=== PATIENT | female | born 1985 | race Hispanic/Latino ===

== ENCOUNTER 2018-04-22 23:34 | Emergency (ER) | payer MEDICAID, OTHER ==
[2018-04-23] MEDS ORDERED: CIPROFLOXACIN HCL 0.2%/HYDROCORT 1% 10 ML OTIC SUSP ONE (00:48)
[2018-04-23] MEDS ORDERED: IBUPROFEN 600 MG TABLET ONE (00:49)
[2018-04-23] MEDS ORDERED: TRAMADOL HCL 50 MG TABLET ONE (00:50)
== END 2018-04-23 01:37 | disposition home or self-care (01) ==
LOC: EDH 23:34
DX: H60.93 Unspecified otitis externa, bilateral (principal)

== ENCOUNTER 2020-12-08 20:35 | Emergency (ER) | payer OTHER ==
[2020-12-08 21:59] LABS: APPEARANCE,URINE Cloudy (CLEAR); BILIRUBIN,URINE Negative (NEGATIVE); COLOR,URINE Yellow (YELLOW); GLUCOSE, URINE (UA) Negative (NEGATIVE); KETONES,URINE Trace mg/dL (NEGATIVE); LEUKOCYTE ESTERASE ,URINE Small (NEGATIVE); NITRATE,URINE Negative (NEGATIVE); OCCULT BLOOD,URINE Negative (NEGATIVE); PH,URINE 5.5 (5.0-8.0); PROTEIN,URINE Trace mg/dL (NEGATIVE)
[2020-12-08 22:01] LABS: HCG,QUAL RESULT NEGATIVE (NEGATIVE)
[2020-12-08 22:02] VITALS: BP 161/97
[2020-12-08 22:06] LABS: RBC,URINE 0-1 /HPF (0-1)
[2020-12-08 22:07] LABS: AMORPHOUS SEDIMENT,UR Few /LPF (None Seen); BACTERIA,URINE Few /HPF (None Seen); MUCUS,URINE Few LPF (None Seen)
[2020-12-08] MEDS ORDERED: DiphenhydrAMINE HCL 50 MG/ML VIAL IV ONE (22:30)
[2020-12-08] MEDS ORDERED: METOCLOPRAMIDE 10 MG/2 ML VIAL IVP ONE (22:30)
[2020-12-08] MEDS ORDERED: KETOROLAC 30MG VIAL (30MG/ML) IV ONE (22:30)
[2020-12-08] MEDS ORDERED: 0.9%NACL 1000ML 1,000 ML IV ONE ×2 (22:30→23:44)
[2020-12-08 23:18] LABS: BASOPHILS % (AUTO) 0.3 % (0.0-5.0); EOSINOPHILS % (AUTO) 7.6 % (0.0-8.0); HEMATOCRIT 35.3 % (36-48); LYMPHOCYTES % (AUTO) 35.9 % (21.0-51.0); MEAN CORPUSCULAR HEMOGLOBIN 29.9 pg (27.0-33.0); MEAN CORPUSCULAR HGB CONC 34.3 g/dL (32.0-36.0); MEAN CORPUSCULAR VOLUME 87.2 fL (79-99); MONOCYTES % (AUTO) 7.9 % (3.0-13.0); NEUTROPHILS % (AUTO) 48.1 % (40.0-77.0); PLATELET COUNT (AUTO) 232 K/uL (130-400); RED BLOOD CELL COUNT(AUTO) 4.05 MIL/uL (4.00-5.50); RED CELL DISTRIBUTION WIDTH 13.1 % (11.0-15.5); WHITE BLOOD COUNT (AUTO) 6.1 K/uL (4.8-10.8)
[2020-12-08 23:31] LABS: CREATININE 0.9 mg/dL (0.5-1.5); POTASSIUM 3.9 mmol/L (3.5-5.1)
[2020-12-08 23:35] LABS: ALBUMIN 3.6 g/dL (3.5-5.0); BILIRUBIN,TOTAL 0.2 mg/dL (0.2-1.0)
[2020-12-08] MEDS ORDERED: METOCLOPRAMIDE 10 MG/2 ML VIAL ONE (23:43)
[2020-12-08] MEDS ORDERED: DiphenhydrAMINE HCL 50 MG/ML VIAL ONE (23:44)
[2020-12-08] MEDS ORDERED: KETOROLAC 30MG VIAL (30MG/ML) ONE (23:44)
[2020-12-09 01:34] VITALS: BP 123/66
[2020-12-09 03:08] VITALS: BP 125/75
== END 2020-12-09 03:17 | disposition home or self-care (01) ==
LOC: EDH 20:35
DX: R53.83 Other fatigue (principal); G44.229 Chronic tension-type headache, not intractable; R07.89 Other chest pain; F17.200 Nicotine dependence, unspecified, uncomplicated; Z79.1 Long term (current) use of non-steroidal anti-inflammatories (NSAID)
CPT/HCPCS: 36415; 71045; 80053; 81001; 81025; 82550; 84484; 85025; 85378; 87088; 93005; 96361; 96374; 96375; J1200; J1885; J2765; J7030